=== PATIENT | male | born 1960 | race Caucasian/White ===

== ENCOUNTER 2017-02-22 18:05 | Emergency (ER) | payer OTHER ==
[~2017-02-22] VITALS: Ht 188 cm; Wt 131.8 kg
[~2017-02-22 18:05] MED LIST: LEVAQUIN750 MG PO
[2017-02-22 18:39] LABS: BASOPHIL (%) 0.2 % (0-1); EOSINOPHIL (%) 0.2 % (0-5); HEMATOCRIT 47.2 % (38.0-50.0); HEMOGLOBIN 16.3 G/DL (12.5-16.6); IMMATURE GRANULOCYTE (%) 0.4 % (0.0-0.7); LYMPHOCYTE (%) 11.6 % (15-42); LYMPHOCYTE COUNT 1.4 K/uL (1.0-2.8); MCHC 34.5 G/DL (30.0-36.0); MCV 86.8 FL (86-99); MONOCYTE (%) 5.2 % (3-12); MONOCYTE COUNT 0.7 K/uL (0-0.8); NEUTROPHIL (%) 82.4 % (45-76); NEUTROPHIL COUNT 10.2 K/uL (1.8-6.4); PLATELET COUNT 203 K/uL (156-360); RBC DIS.WIDTH-CV 12.9 % (11.8-14.6); RBC DIS.WIDTH-SD 40.3 % (39-53); RED BLOOD COUNT 5.44 M/uL (4.00-5.50); WHITE BLOOD COUNT 12.4 K/uL (4.1-10.2)
[2017-02-22 18:46] LABS: ALBUMIN 4.5 g/dL (3.2-4.8)
[2017-02-22 18:47] LABS: CHLORIDE 107 mEq/L (99-109); POTASSIUM 4.1 mEq/L (3.7-5.4); SODIUM 136 mEq/L (136-147)
[2017-02-22 18:49] LABS: GLUCOSE 124 mg/dL (70-99); TOTAL PROTEIN 7.5 g/dL (6.4-8.3)
[2017-02-22 18:52] LABS: ALKALINE PHOSPHATASE 84 IU/L (3-129)
[2017-02-22 18:53] LABS: CREATININE 1.2 mg/dL (0.6-1.3); GFR ESTIMATE (CALCULATED) > 59 mL/min/ (58.99-99999)
[2017-02-22 18:54] LABS: AST (GOT) 22 IU/L (2-34); UREA NITROGEN (BUN) 15 mg/dL (9-23)
[2017-02-22 18:55] LABS: ALT (GPT) 18 IU/L (3-49)
[2017-02-22 18:56] LABS: LIPASE 15 U/L (1.0-51.0)
[2017-02-22 22:21] LABS: APPEARANCE CLEAR ((CLEAR)); BILIRUBIN NEGATIVE; BLOOD LARGE; COLOR STRAW ((YELLOW)); GLUCOSE (STRIP) 50; KETONES 20; LEUKOCYTES NEGATIVE; NITRITE NEGATIVE; PROTEIN (STRIP) NEGATIVE; SPECIFIC GRAVITY 1.014 (1.000-1.030); UROBILINOGEN 0.2 MG/DL (0.2-1.0)
[2017-02-22 22:33] LABS: BACTERIA NONE SEEN /HPF; EPITHELIAL CELLS NONE SEEN /HPF; MUCUS TRACE /LPF; RED BLOOD CELLS TNTC /HPF (0-5); UCUL ADDED? YES; WHITE BLOOD CELLS 0-5 /HPF (0-5)
[2017-02-22] MEDS ORDERED: ZOFRAN ODT4 MG PO (22:43)
[2017-02-22] MEDS ORDERED: FLOMAX0.4 MG PO (22:43)
[2017-02-22] MEDS ORDERED: PERCOCET 10/1 TABLET PO (22:43)
[2017-02-22 23:25] VITALS: BP 148/69
== END 2017-02-22 23:35 | disposition home or self-care (01) ==
LOC: EME 18:05
PROVIDERS: Physician Assistant Medical
DX: N20.0 Calculus of kidney (principal); Z88.5 Allergy status to narcotic agent; Z88.1 Allergy status to other antibiotic agents
CPT/HCPCS: 71045; 74177; 80053; 81003; 83690; 85025; 87086; 93005; 99281; 99285; J1170; J1885; J2405; J3010; J7030